=== PATIENT | male | born 1990 | race Caucasian/White ===

== ENCOUNTER → 2021-01-26 16:19 | Outpatient (CLI) | payer SELFPAY ==
--- NOTE | 2021-01-26 16:28 | RAD_ITS ---
STUDY: X-RAY - ACUTE ABDOMINAL SERIES REASON FOR EXAM: Male, 30 years old. PAIN TECHNIQUE: Single view of the chest. Supine, and erect view(s) of the abdomen were obtained. COMPARISON: None. FINDINGS: The lungs are clear and expanded. Normal size heart. Normal mediastinum and luz. Normal visualized pulmonary arteries. Normal visualized aortic arch and descending thoracic aorta. There is a non-specific bowel gas pattern. The soft tissue structures of the abdomen and pelvis are unremarkable. Normal visualized osseous structures. RAD/Acute Abdomen Inc Chest IMPRESSION: Normal x-ray examination of the chest, abdomen, and pelvis. Electronically Signed: Sherwin Álvarez MD ([place]) at 7:28 EST , Service support ,
[2021-01-26 18:14] LABS: Absolute Lymphocyte Count 1.01 X10^3/uL (0.83-4.51); Absolute Neutrophil Count 3.1 X10^3/uL (2.0-7.7); Basophil# 0.03 X10^3/uL; Basophil% 0.6 % (0-1); Eosinophil# 0.09 X10^3/uL; Eosinophils% 1.9 % (0-5); Hematocrit 46.6 % (40-54); Hemoglobin 16.4 g/dL (13.0-16.5); Lymphocyte # 1.01 X10^3/ul (0.83-4.51); Lymphocyte % 20.9 % (19-41); Mean Corp Hgb Conc 35.2 g/dL (32-36); Mean Corpuscular Hgb 29.8 pg (27.0-32.0); Mean Corpuscular Volume 84.7 fL (80-94); Mean Platelet Vol. 11.2 fl (6.2-12.0); Monocyte# 0.59 X10^3/uL; Monocyte% 12.2 % (0-10); NRBC Flagged by Analyzer 0 % (0-5); Neutrophil # 3.08 X10^3/uL (2.7-7.7); Neutrophil % 63.8 % (47-70); Platelet Count 218 K/mm3 (150-450); RBC Distribution Width CV 11.9 % (11.6-14.6); RBC Distribution Width SD 36.7 fl (35.1-43.9); White Blood Count 4.8 K/mm3 (4.4-11.0)
[2021-01-26 18:30] LABS: ALB/GLOB Ratio 1.1 RATIO (0.9-2.4); AST(SGOT) 19 U/L (15-37); Alanine Aminotransfer ALT/SGPT 30 U/L (16-61); Albumin, Serum 4.2 g/dL (3.2-5.0); Alkaline Phosphatase 78 U/L (45-117); Anion Gap 8 (5-15); BUN 14 mg/dL (7-18); BUN/Creat Ratio 11.7 RATIO (10-20); Calcium,Total 9.8 mg/dL (8.5-10.1); Chloride 103 mmol/L (98-107); EST Glomerular Filtration Rate 76 mL/min (>60); Est Glom Filt Rate - Afr Amer 92 mL/min (>60); Globulin 3.9 g/dL (2.2-4.2); Glucose 89 mg/dL (74-106); Potassium 3.7 mmol/L (3.5-5.1); Protein, Total 8.1 g/dL (6.4-8.2); Sodium Level 139 mmol/L (136-145)
== END ==
PROVIDERS: PCP Family Medicine; Referring Provider Family Medicine; Visit Provider Family Medicine
DX: R10.9 Unspecified abdominal pain (principal)
CPT/HCPCS: 36415; 74022; 80053; 85025

== ENCOUNTER 2021-04-13 15:27 | Outpatient (CLI) | payer SELFPAY ==
[2021-04-13 17:14] LABS: Absolute Lymphocyte Count 0.64 X10^3/uL (0.83-4.51); Absolute Neutrophil Count 2.3 X10^3/uL (2.0-7.7); Basophil# 0.02 X10^3/uL; Basophil% 0.6 % (0-1); Eosinophil# 0.04 X10^3/uL; Eosinophils% 1.2 % (0-5); Erythrocyte Sedimentation Rate < 1 mm/hr (0-20); Hematocrit 46.7 % (40-54); Hemoglobin 16.3 g/dL (13.0-16.5); Lymphocyte # 0.64 X10^3/ul (0.83-4.51); Lymphocyte % 18.4 % (19-41); Mean Corp Hgb Conc 34.9 g/dL (32-36); Mean Corpuscular Hgb 29.8 pg (27.0-32.0); Mean Corpuscular Volume 85.4 fL (80-94); Mean Platelet Vol. 10.9 fl (6.2-12.0); Monocyte# 0.43 X10^3/uL; Monocyte% 12.4 % (0-10); NRBC Flagged by Analyzer 0 % (0-5); Neutrophil # 2.32 X10^3/uL (2.7-7.7); Neutrophil % 66.8 % (47-70); Platelet Count 163 K/mm3 (150-450); RBC Distribution Width SD 37.4 fl (35.1-43.9); Red Blood Count 5.47 M/mm3 (4.6-6.2); White Blood Count 3.5 K/mm3 (4.4-11.0)
[2021-04-13 17:37] LABS: CRP < 2.90 mg/L (0.0-3.0)
[2021-04-15 12:09] LABS: Anti-Centromere B Ab <0.2 AI (0.0-0.9); Anti-Chromatin <0.2 AI (0.0-0.9); Anti-Jo <0.2 AI (0.0-0.9); Anti-Scleroderma-70 AB <0.2 AI (0.0-0.9); RNP Ab <0.2 AI (0.0-0.9); SJOGREN'S Anti-SS-A test < 0.2 AI (0.0-0.9); SJOGREN'S Anti-SS-B test < 0.2 AI (0.0-0.9); Smith Ab <0.2 AI (0.0-0.9)
[2021-04-15 13:19] LABS: Anti-dsDNA Ab 1 IU/mL (0-9)
[2021-04-18 17:07] LABS: Cytoplasmic Ab (C-ANCA) <1:20 titer (Neg:<1:20); Endomysial Antibody IgA Negative (Negative); Immunoglobulin A 112 mg/dL (90-386); Immunoglobulin E 27 IU/mL (6-495); Immunoglobulin G 920 mg/dL (603-1613)
[2021-04-19 08:31] LABS: Gastrin, Serum 153 pg/mL (0-115); Immunoglobulin M 37 mg/dL (20-172); Perinuclear Ab (P-ANCA) <1:20 titer (Neg:<1:20); t-Transglutaminase IgA <2 U/mL (0-3)
== END 2021-04-13 23:59 | disposition home or self-care (01) ==
PROVIDERS: PCP Family Medicine; Visit Provider Internal Medicine Gastroenterology
DX: R14.0 Abdominal distension (gaseous) (principal); R10.9 Unspecified abdominal pain
CPT/HCPCS: 36415; 82784; 82785; 82941; 83516; 85025; 85652; 86140; 86225; 86235; 86255; 86256

== ENCOUNTER 2021-04-21 16:04 | Outpatient (CLI) | payer SELFPAY ==
--- NOTE | 2021-04-21 16:12 | RAD_ITS ---
STUDY: X-RAY - THORACIC SPINE REASON FOR EXAM: Male, 30 years old. BACK PAIN TECHNIQUE: 3 view(s) of the thoracic spine were obtained. COMPARISON: None. FINDINGS: Normal kyphosis of the thoracic spine. There is no substantial scoliosis. There is minimal multilevel endplate spondylosis of the thoracic vertebrae. There is minimal multilevel disc space narrowing of the thoracic spine. The soft tissue structures are unremarkable. RAD/Thoracic Spine 2 Views IMPRESSION: Minimal degenerative change. No visualized fracture. Electronically Signed: Maryam Hernandez MD at 8:00 EST Reading Location ID and State: [facility] / [place] Tel , Service support ,
== END 2021-04-21 23:59 | disposition home or self-care (01) ==
PROVIDERS: PCP Family Medicine; Referring Provider Family Medicine; Visit Provider Family Medicine
DX: M54.9 Dorsalgia, unspecified (principal)
CPT/HCPCS: 72070

== ENCOUNTER 2021-05-06 08:56 | Day surgery (SDC) | payer SELFPAY ==
--- NOTE | 2021-05-06 | EGD_PTH ---
PATIENT: ROSALIND BISHOP LOC: EN U#:[id number] AGE/SX: 30/M ROOM: RE05/06/[address]: Dr. Lorenzo Navarrete DO : 1990 BED: DIS: 05/06/2021 SPEC #: [id number] RECD: 05/06/21 14:25 STATUS: ARCHIE RECheko #: [id number] AMAURY: 05/06/21 00:[address]: Lorenzo Navarrete DEPT: SURGICAL PATHOLOGY RECD BY: Jeffrey Salazar ENTERED: 05/07/21 11:54 SP TYPE: EGD BIOPSY OT DR: Dr. Felipe Musa MD Tissues: A - Duodenum, NOS B - Esophageal mucous membrane Procedures: Special Stain Group II Surgery Specimen Level IV Alcian Blue/PAS (control) HEADER OPERATION: EGD ([facility] [place]), biopsy PRE-OP DIAGNOSIS: Irritable bowel syndrome, heartburn TISSUE SUBMITTED: A ? Duodenum biopsy, B ? Distal esophagus biopsy MICROSCOPIC DIAGNOSIS A. Duodenum, biopsy: Fragments of duodenal mucosa, no pathologic diagnosis. B. Distal esophagus, biopsy: Fragments of gastroesophageal mucosa with moderate chronic inflammation. Intestinal metaplasia (goblet cell metaplasia) not identified. See comment. RUBEN:rudolph 05/08/2021 COMMENT B. Alcian blue/PAS stain with matched control is used in the evaluation of the specimen. MICROSCOPIC DESCRIPTION Slides are reviewed. GROSS DESCRIPTION A - Received in fixative is one container labeled with the patient's name and designated duodenum biopsy. The specimen consists of multiple irregular fragments of light pierre soft tissue that in aggregate measure 0.8 x 0.3 x 0.1 cm. The specimen is totally submitted in one cassette. B - Received in fixative is one container labeled with the patient's name and designated distal esophagus biopsy. The specimen consists of two irregular fragments of light pierre soft tissue that in aggregate measure 0.5 x 0.2 x 0.1 cm. The specimen is totally submitted in one cassette. / RUBEN:rudolph 05/07/2021 TC:3 CPT: 12981 x2, 87063
[2021-05-06 09:10] VITALS: BP 151/87; PULSE 76; RESP 18; TEMP 36.6; O2SAT 98; BMI 31.8
[2021-05-06] MEDS: Lactated Ringers 1,000 ML 15 ML IV (09:10)
--- NOTE | 2021-05-06 09:42 | PCM.HP.BLA ---
History and Physical Date of Admission: 05/06/21 ROSALIND BISHOP, is a 30 M who presents to the office today for evaluation of abdominal pain and worsening reflux disease. He says that he gets pain in his upper epigastric area that can radiate to his back and is worse with food. Is also been having problems with eating and having been to the bathroom Afterwards. Initially he was constipated but then this progressed to diarrhea after taking Linzess. Currently he is having a lot of problems with loose stools after eating. He is not having any weight loss. He denies any hematochezia or melena. He does not take any NSAIDs. 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 He denies any chest pain or shortness of breath but does have worsening reflux disease. He does drink alcohol but not on a daily basis. He does smoke cigarettes. All 16 review of systems negative except as what was mentioned HPI ROS Gastro GI: Positive for abdominal pain, change in bowel habits and heartburn Coding Level of Care Code Off vis,new,level 3 Diagnoses Irritable bowel syndrome K58.9 Heartburn R12 Assessment and Plan Assessment and Plan (1) Irritable bowel syndrome: Plan - Dr. Ventura Friend, DO: Parental diagnosis for your bowel syndrome could be nicotine induced diarrhea. Atypical reflux disease, celiac disease, H. pylori.. Undergo upper endoscopy to evaluate his upper GI tract. We will also check a gastrin level, CRP, ESR, ANCA, celiac disease profile and immunoglobulins E, G, M, A. (2) Heartburn: Status: Acute Plan - Dr. Ventura Friend, DO: He may also need a gastric emptying study to see why he needs 40 mg of omeprazole twice a day. Plan Details Other Orders: Orders: Gastrin, Serum Today R10.9, R14.0 CRP Today R10.9, R14.0 CBC W/Diff, Automated Today R10.9, R14.0 Erythrocyte Sed Rate Today R10.9, R14.0 ANCA Today R10.9, R14.0 Celiac Disease Profile Today R10.9, R14.0 Immunoglobulin E Today R10.9, R14.0 Immunoglobulin G Today R10.9, R14.0 Immunoglobulin M Today R10.9, R14.0 I have re-examined the patient. There are no clinical changes since date of exam.
[2021-05-06 10:05] VITALS: BP 151/87; BP 91/79; PULSE 94; RESP 16; TEMP 37.1; O2SAT 97
[2021-05-06 10:10] VITALS: BP 110/62; BP 151/87; PULSE 91; RESP 16; O2SAT 98
[2021-05-06 10:15] VITALS: BP 125/91; BP 151/87; PULSE 86; RESP 16; O2SAT 97
[2021-05-06 10:20] VITALS: BP 131/95; BP 151/87; PULSE 87; RESP 16; TEMP 36.6; O2SAT 96
--- NOTE | 2021-05-06 10:44 | OP.EGD_ITS ---
Patient Name: Corwin Frausto Procedure Date: 05/06/2021 9:41 AM Date of : 1990 Age: 30 Procedure: Upper GI endoscopy Indications: Epigastric abdominal pain, Functional Dyspepsia, Heartburn Providers: Lorenzo Navarrete DO Referring MD: Chandrakant Musa Medicines: See the Anesthesia note for documentation of the administered medications Patient Profile: This is a 30 year old male. Patient has symptoms of chronic abdominal cramping, chronic cough, chronic dyspepsia and chronic heartburn. Complications: No immediate complications. Procedure: Pre-Anesthesia Assessment: - Prior to the procedure, a History and Physical was performed, and patient medications and allergies were reviewed. The patient is competent. The risks and benefits of the procedure and the sedation options and risks were discussed with the patient. All questions were answered and informed consent was obtained. Patient identification and proposed procedure were verified by the physician in the pre-procedure area. Mental Status Examination: alert and oriented. Airway Examination: normal oropharyngeal airway and neck mobility. Respiratory Examination: clear to auscultation. CV Examination: normal. Prophylactic Antibiotics: The patient does not require prophylactic antibiotics. Prior Anticoagulants: The patient has taken no previous anticoagulant or antiplatelet agents. ASA Grade Assessment: II - A patient with mild systemic disease. After reviewing the risks and benefits, the patient was deemed in satisfactory condition to undergo the procedure. The anesthesia plan was to use moderate sedation / analgesia (conscious sedation). Immediately prior to administration of medications, the patient was re-assessed for adequacy to receive sedatives. The heart rate, respiratory rate, oxygen saturations, blood pressure, adequacy of pulmonary ventilation, and response to care were monitored throughout the procedure. The physical status of the patient was re-assessed after the procedure. After obtaining informed consent, the endoscope was passed under direct vision. Throughout the procedure, the patient's blood pressure, pulse, and oxygen saturations were monitored continuously. The gastroscope was introduced through the mouth, and advanced to the second part of duodenum. The upper GI endoscopy was accomplished without difficulty. The patient tolerated the procedure well. Moderate Sedation: Moderate (conscious) sedation was administered by the endoscopy nurse and supervised by the endoscopist. The following parameters were monitored: oxygen saturation, heart rate, blood pressure, and response to care. Total physician intraservice time was 15 minutes. Scope In: 9:52:23 AM Scope Out: 9:59:47 AM Total Procedure Duration Time 0 hours 7 minutes 24 seconds Findings: LA Grade A (one or more mucosal breaks less than 5 mm, not extending between tops of 2 mucosal folds) esophagitis with no bleeding was found 37 to 40 cm from the incisors. Biopsies were taken with a cold forceps for histology. Verification of patient identification for the specimen was done. Estimated blood loss was minimal. A medium-sized hiatal hernia was present. The second portion of the duodenum was normal. Biopsies were taken with a cold forceps for histology. Verification of patient identification for the specimen was done. Estimated blood loss was minimal. Impression: - LA Grade A reflux esophagitis. Biopsied. - Medium-sized hiatal hernia. - Normal second portion of the duodenum. Biopsied. Recommendation: - Discharge patient to home. - Resume previous diet. - Continue present medications. - Await pathology results. Procedure Code(s): --- Professional --- 08380, Esophagogastroduodenoscopy, flexible, transoral; with biopsy, single or multiple 15411, 59, Moderate sedation services provided by the same physician or other qualified health hemodialysis patient care specialist performing the diagnostic or therapeutic service that the sedation supports, requiring the presence of an independent trained observer to assist in the monitoring of the patient's level of consciousness and physiological status; initial 15 minutes of intraservice time, patient age 5 years or older CPT copyright 2017 [employer]. All rights reserved. The codes documented in this report are preliminary and upon data coder operator review may be revised to meet current compliance requirements. Lorenzo Navarrete DO 05/06/2021 10:44:03 AM This report has been signed electronically. Number of Addenda: 1 Note Initiated On: 05/06/2021 9:41 AM Addendum Number: 1 Addendum Date: 12/02/2021 6:40:42 AM MAC was used as sedation for this procedure. Lorenzo Navarrete DO 12/02/2021 6:40:45 AM This report has been signed electronically.
--- NOTE | 2021-05-06 10:45 | OP.CCLET_ITS ---
12/02/2021 Chandrakant Musa [address] [place] [address] Re : Upper GI endoscopy procedure for Corwin Frausto Dear Dr. Musa This procedure was performed on Thursday, May 06, 2021. My impressions and recommendations are as follows: Impressions : - LA Grade A reflux esophagitis. Biopsied. - Medium-sized hiatal hernia. - Normal second portion of the duodenum. Biopsied. Recommendations : - Discharge patient to home. - Resume previous diet. - Continue present medications. - Await pathology results. My findings are described in the full procedure note, which is enclosed. If I can be of further assistance, please feel free to contact me at . Sincerely, Lorenzo Navarrete, 05/06/2021 10:44:03 AM This report has been signed electronically.
[2021-05-06 10:55] VITALS: BP 151/87
== END 2021-05-06 23:59 | disposition home or self-care (01) ==
LOC: EN 08:57 → AC 08:59
PROVIDERS: PCP Family Medicine; Referring Provider Family Medicine; Visit Provider Internal Medicine Gastroenterology
PROC: 0DJ08ZZ Inspection of Upper Intestinal Tract, Via Natural or Artificial Opening Endoscopic (ICD-10-PCS; CPT 43235; principal; 2021-05-06 10:10)
DX: K21.00 Gastro-esophageal reflux disease with esophagitis, without bleeding (principal); K44.9 Diaphragmatic hernia without obstruction or gangrene; F17.210 Nicotine dependence, cigarettes, uncomplicated; F41.9 Anxiety disorder, unspecified; Z86.16 Personal history of COVID-19; Z79.899 Other long term (current) drug therapy
CPT/HCPCS: 43239; 88305; 88313; J7120; J2405

== ENCOUNTER → 2022-03-22 | Outpatient (CLI) | payer SELFPAY ==
[2022-03-22 19:41] LABS: ALB/GLOB Ratio 1.2 RATIO (0.9-2.4); AST(SGOT) 28 U/L (15-37); Alanine Aminotransfer ALT/SGPT 52 U/L (16-61); Albumin, Serum 4.1 g/dL (3.2-5.0); Alkaline Phosphatase 55 U/L (45-117); Anion Gap 5 (5-15); BUN 14 mg/dL (7-18); BUN/Creat Ratio 9.7 RATIO (10-20); Calcium,Total 9.7 mg/dL (8.5-10.1); Chloride 101 mmol/L (98-107); Creatinine, Serum 1.45 mg/dL (0.70-1.30); EST Glomerular Filtration Rate 61 mL/min (>60); Est Glom Filt Rate - Afr Amer 73 mL/min (>60); Globulin 3.4 g/dL (2.2-4.2); Glucose 83 mg/dL (74-106); Potassium 3.9 mmol/L (3.5-5.1); Protein, Total 7.5 g/dL (6.4-8.2); Sodium Level 138 mmol/L (136-145)
== END | disposition home or self-care (01) ==
PROVIDERS: PCP Family Medicine; Visit Provider Family Medicine
DX: I10 Essential (primary) hypertension (principal)
CPT/HCPCS: 36415; 80053

== ENCOUNTER → 2023-07-25 | Outpatient (CLI) | payer SELFPAY ==
[2023-07-25 17:51] LABS: Basophil# 0.03 X10^3/uL; Basophil% 0.5 % (0-1); Eosinophil# 0.16 X10^3/uL; Eosinophils% 2.6 % (0-5); Hematocrit 45.1 % (40-54); Hemoglobin 15.6 g/dL (13.0-16.5); Lymphocyte % 25.7 % (19-41); Mean Corp Hgb Conc 34.6 g/dL (32-36); Mean Corpuscular Hgb 29.8 pg (27.0-32.0); Mean Corpuscular Volume 86.2 fL (80-94); Mean Platelet Vol. 11.2 fl (6.2-12.0); Monocyte# 0.45 X10^3/uL; Monocyte% 7.2 % (0-10); NRBC Flagged by Analyzer 0 % (0-5); Neutrophil # 3.96 X10^3/uL (2.7-7.7); Neutrophil % 63.5 % (47-70); Platelet Count 216 K/mm3 (150-450); RBC Distribution Width CV 12.7 % (11.6-14.6); RBC Distribution Width SD 39.4 fl (35.1-43.9); Red Blood Count 5.23 M/mm3 (4.6-6.2); White Blood Count 6.2 K/mm3 (4.4-11.0)
[2023-07-25 18:02] LABS: Erythrocyte Sedimentation Rate < 1 mm/hr (0-20)
[2023-07-25 18:23] LABS: ALB/GLOB Ratio 1.3 RATIO (0.9-2.4); AST(SGOT) 16 U/L (15-37); Alanine Aminotransfer ALT/SGPT 31 U/L (16-61); Alkaline Phosphatase 68 U/L (45-117); Anion Gap 7 (5-15); BUN 14 mg/dL (7-18); BUN/Creat Ratio 10.2 RATIO (10-20); CRP < 2.90 mg/L (0.0-3.0); Calcium,Total 9.1 mg/dL (8.5-10.1); Chloride 105 mmol/L (98-107); Creatinine, Serum 1.37 mg/dL (0.70-1.30); EST Glomerular Filtration Rate 64 mL/min (>60); Est Glom Filt Rate - Afr Amer 78 mL/min (>60); Globulin 3.1 g/dL (2.2-4.2); Glucose 69 mg/dL (74-106); Potassium 3.6 mmol/L (3.5-5.1); Protein, Total 7.1 g/dL (6.4-8.2); Sodium Level 139 mmol/L (136-145)
== END | disposition home or self-care (01) ==
LOC: MFPLAB 14:39
PROVIDERS: PCP Family Medicine; Visit Provider Family Medicine
DX: K92.1 Melena (principal)
CPT/HCPCS: 36415; 80053; 85025; 85652; 86140

== ENCOUNTER 2024-03-06 23:09 | Emergency (ER) | payer SELFPAY ==
[2024-03-06 23:10] VITALS: BP 167/114; PULSE 107; RESP 16; TEMP 37.1; O2SAT 99; BMI 33.9
--- NOTE | 2024-03-07 00:05 | EX.ED.DYSGE1 ---
HPI History of Present Illness Chief Complaint: Bite Informant: patient and friend Narrative Narrative: Patient is a 33-year-old male with past medical history of anxiety and IBS. He reports a few hours ago he was trying to put his dog in a crate when the dog bit him along the right wrist/forearm. He denies any numbness tingling or weakness. He states his tetanus status is up-to-date. He has concern he may need antibiotics based on the dog bite and therefore comes in for evaluation. Patient states he is right-hand dominant He denies any other injuries associated with the dog bite [facility] Medical History (Updated 03/07/24 @ 02:[address] Riaz Ridley, DO) COVID Anxiety Alcohol use Arthritis Restless legs Back pain Injury of head and neck History of IBS Gastric reflux Asthma Chewing tobacco use Hay fever Home Medications ?Medication ?Instructions ?Recorded ?Last Taken ?Type buspirone 5 mg tablet 5 mg PO BID 05/05/21 05/06/21 07:00 History pantoprazole 40 mg tablet,delayed 40 mg PO BID 60 days #60 tabs 12/09/23 Unknown Rx release (Protonix) amoxicillin 875 mg-potassium 1 tab PO BID 10 days #20 tabs 03/07/24 Unknown Rx clavulanate 125 mg tablet Allergy/AdvReac Type Severity Reaction Status Date / Time house dust Allergy Mild CONGESTION Verified 03/06/24 23:10 bee venom protein (honey bee) AdvReac Severe SWELLING Verified 03/06/24 23:10 iodine AdvReac Mild Vomiting Verified 03/06/24 23:10 lactase (From Dairy Aid) AdvReac Mild Diarrhea Verified 03/06/24 23:10 Iodinated Contrast Media AdvReac Vomiting Verified 03/06/24 23:10 Family History (Updated 04/13/21 @ 14:46 by Zahra Brandt) Other Anxiety Surgical History (Updated 05/05/21 @ 10:40 by Nati Henderson) Hx of tonsillectomy Social History (Updated 04/13/21 @ 14:47 by Zahra Brandt) Smoking Status: Former smoker alcohol intake: current alcohol intake frequency: a few times a month Alcohol type: beer substance use type: does not use what type of physical activity do you participate in: weight training frequency: daily ROS ROS ED Constitutional Constitutional ED: Denies chills or fever(s) ENT ENT ED: Denies sore throat Cardiovascular Cardiovascular: Denies chest pain Respiratory/Chest Respiratory/Chest: Denies cough or dyspnea Gastrointestinal Gastrointestinal: Denies abdominal pain, diarrhea, nausea or vomiting Genitourinary Genitourinary ED: Denies dysuria Musculoskeletal Musculoskeletal: Reports myalgias and other Details: Positive right wrist/forearm pain Integumentary Reports other Details: Positive dog bite right wrist/forearm Neurologic Neurologic: Denies headache(s), paresthesias or weakness Hematologic/Lymphatic Hematologic/Lymphatic: Denies easy bleeding or easy bruising EXAM Physical Exam Const Vital Signs: 03/06/24 23:10 03/07/24 00:11 Temperature 98.7 F 98.7 F Temperature Source Oral Pulse Rate 107 H 107 H Respiratory Rate 16 16 Blood Pressure 167/114 H 167/114 H Blood Pressure Mean 131 131 Pulse Ox 99 99 Oxygen Delivery Method Room Air Positive well nourished and well developed General Appearance ED: well developed HEENT HEENT Narrative: Normocephalic atraumatic Eyes PERRL and EOMs intact bilaterally General Eye ED: Negative for scleral icterus Neck supple Resp normal respiratory effort and clear to auscultation bilaterally Cardio regular rate and regular rhythm Extremity Extremity Narrative: Right upper extremity is neurovascularly intact; AIN/PIN are intact and normal Along the dorsal aspect of the right lower arm near the anatomical snuffbox is a 1.5 cm dermal layer deep laceration with minimal ooze of blood and no foreign body There is a punctate roughly half centimeter wide also dermal layer deep puncture/laceration along the distal third of the right forearm near the distal radius. No obvious foreign body or active bleeding at the site No purulent discharge from either wound and no lymphangitic streaking Compartments are soft and compressible going against compartment syndrome Patient has full active and passive range of motion without pain Neuro oriented x3, CN's II-XII intact bilaterally and no sensory deficits noted Sensorium / Orientation: alert Motor Exam: strength 5/5 throughout Psych mental status grossly normal Skin Skin Narrative: Dog bites to the right wrist/forearm as documented above MDM MDM MDM Narrative Medical decision making narrative: Patient arrived to the ER hypertensive but otherwise with stable vitals. He reported he was bit 1 to 2 hours ago by his dog and therefore the dog can be watched and there is no need for rabies immunoglobulin or vaccination. He reports his tetanus status is under 5 years old and therefore it will not be updated either. We discussed obtaining an x-ray to check for potential fracture versus retained tooth but patient is low concern for this and does not want imaging. The wounds are not gaping and therefore do not require suturing. There is no surrounding secondary infection such as cellulitis or abscess so there is no need for blood work or IV antibiotics. However as there is high risk for developing infection from the dog bite patient will be placed on prophylactic antibiotics and is otherwise safe for discharge. History & Record Review Discussion w/independent historian: Patient and Friend Discharge Plan Triage Chief Complaint: Bite ED Provider: Riaz Ridley Dx/Rx/DC Orders Clinical Impression: Dog bite of right wrist, Anxiety, Irritable bowel syndrome Instructions: ED Dog Bite Prescriptions: New amoxicillin-pot clavulanate 875-125 mg tablet 1 tab PO BID 10 Days Qty: 20 0RF No Action buspirone 5 mg Tablet 5 mg PO BID pantoprazole [Protonix] 40 mg tablet,delayed release (DR/EC) 40 mg PO BID 60 Days Qty: 60 3RF Primary Care Provider: Felipe Musa Referrals: Felipe Musa MD [Primary Care Provider] - Activity Restrictions/Additional Instructions: Please take your antibiotic as directed to prevent any infection from your dog bite. Return to the ER should you have any further concerns or worsening of symptoms Print Language: Kiswahili Disposition Disposition: Home, Self Care Discharge Date/Time: 03/07/24 00:24
[2024-03-07 00:11] VITALS: BP 167/114; PULSE 107; RESP 16; TEMP 37.1; O2SAT 99
--- NOTE | 2024-03-07 00:22 | ED.RN ---
This RN went bedside to administer patient's Augmentin and discharge patient, when it was discovered that the patient was no longer in his room. Patient's friend who was bedside was also gone. Patient cannot be located at this time.
== END 2024-03-07 00:24 | disposition home or self-care (01) ==
PROVIDERS: Emergency Provider Emergency Medicine; PCP Family Medicine; Visit Provider Emergency Medicine
DX: S60.871A Other superficial bite of right wrist, initial encounter (principal); W54.0XXA Bitten by dog, initial encounter; F41.9 Anxiety disorder, unspecified; K58.9 Irritable bowel syndrome, unspecified; K21.9 Gastro-esophageal reflux disease without esophagitis; Z79.899 Other long term (current) drug therapy; Z87.891 Personal history of nicotine dependence
CPT/HCPCS: 99283